=== PATIENT | male | born 1950 | race Caucasian/White ===

== ENCOUNTER 2017-03-04 10:22 | Day surgery (SDC) | payer OTHER, BC ==
[2017-02-28 11:33] VITALS: BMI 35.2
[2017-03-04] MEDS ORDERED: PROPOFOL 20 ML ONE (10:44)
[2017-03-04] MEDS ORDERED: LIDOCAINE HCL/PF 2% SDV 5ML VIAL ONE (10:44)
[2017-03-04 13:00] VITALS: BP 121/68; PULSE 78; TEMP 98
--- NOTE | 2017-03-05 16:08 | PATH ---
Surgical Pathology Report Patient Name: KAY ABURTO [facility]. Rec. #: [id number] /Age/Gender: 1950 (Age: 67) / M Account: [id number] Location: [facility]-ENDOSCOPY Taken: 03/04/2017 Received: 03/04/2017 Reported: 03/05/2017 Physicians: Jaxon Washington M.D. Specimen(s) Received BX ANTRUM Clinical History Preoperative diagnosis: Anemia Postoperative diagnosis: Prepyloric ulcer, gastric erosions Final Diagnosis ANTRUM, BIOPSY: MILD CHRONIC ACTIVE GASTRITIS. IMMUNOSTAIN IS NEGATIVE FOR H. PYLORI ORGANISMS. Electronically Signed Sherrie Esparza M.D. Gross Description Received in formalin, labeled "antrum" is a trevino, irregular portion of soft tissue measuring 0.3 cm. in greatest dimension. The specimen is submitted in toto in one cassette. /03/04/201703/04/2017
== END 2017-03-04 12:45 | disposition home or self-care (01) ==
LOC: FASU-ENDO 10:22
PROVIDERS: ATTEND Internal Medicine Gastroenterology
PROC: 0DB68ZX Excision of Stomach, Via Natural or Artificial Opening Endoscopic, Diagnostic (ICD-10-PCS; principal; 2017-03-04 11:33)
DX: D50.9 Iron deficiency anemia, unspecified (principal); K29.50 Unspecified chronic gastritis without bleeding; K44.9 Diaphragmatic hernia without obstruction or gangrene
CPT/HCPCS: 88305-TC; 88342-TC

== ENCOUNTER 2021-04-24 04:15 | Day surgery (SDC) | payer OTHER, BC ==
[2021-04-20 11:06] VITALS: BMI 32.5
[2021-04-24 08:44] LABS: BASO % 0.3 % (0-2.0); EOS % 1.5 % (0-4.5); HEMATOCRIT 39.1 % (35.4-49); HEMOGLOBIN 13.5 GM/dL (11.7-16.9); LYMPH % 22.2 % (8-40); MCH 28.3 pg (25.7-33.7); MCHC 34.6 g/dl (32.0-35.9); MEAN PLT VOLUME 7.9 fl (7.5-11.1); MONO % 7.8 % (3.8-10.2); NEUT % 68.2 % (42.8-82.8); PLATELET COUNT 265 10^3/uL (134-434); RBC 4.77 M/mm3 (4.00-5.60); WHITE BLOOD COUNT 6.6 K/mm3 (4.0-10.0)
[2021-04-24 08:46] LABS: INR 1.15 (0.83-1.09); PROTHROMBIN TIME (PATIENT) 13.2 SEC (9.7-13.0)
[2021-04-24 14:48] VITALS: TEMP 98
[2021-04-24 16:05] VITALS: BP 146/72; PULSE 82
[2021-04-24 16:22] LABS: CSF APPEARANCE CLEAR (CLEAR); CSF COLOR COLORLESS (COLORLESS); CSF WBC 0 mm3 (0-5)
[2021-04-28 17:40] LABS: BF GLUCOSE (CSF ONLY) 61 mg/dL (40-70)
== END 2021-04-24 14:10 | disposition home or self-care (01) ==
LOC: JRADIR 04:15
PROVIDERS: ATTEND Psychiatry & Neurology Psychiatry
PROC: 009U3ZX Drainage of Spinal Canal, Percutaneous Approach, Diagnostic (ICD-10-PCS; principal; 2021-04-24)
DX: G61.81 Chronic inflammatory demyelinating polyneuritis (principal)
CPT/HCPCS: 36415; 62272; 82784; 82945; 83916; 84157; 85025; 85610; 87070; 87102; 87116; 87205; 87206; 87210; 87252; 87899

== ENCOUNTER 2023-07-01 18:40 | Emergency (ER) | payer OTHER, BC ==
[2023-07-01 18:53] VITALS: TEMP 99.1; BMI 32.1
[2023-07-01] MEDS ORDERED: methylPREDNISolone NA SUCC 125 MG/2 ML VIAL ONE (19:17)
[2023-07-01] MEDS: methylPREDNISolone NA SUCC 125 MG/2 ML VIAL IVPB ONE (19:24)
[2023-07-01] MEDS: FAMOTIDINE 20 MG/50 ML IVPB 20 MG/50 ML MG IVPB ONE (20:02)
[2023-07-01] MEDS ORDERED: ACETAMINOPHEN INJECTION 100 ML IVPB ONE (20:04)
[2023-07-01] MEDS: ACETAMINOPHEN 1000 MG/100 ML BAG IVPB ONE (20:14)
[2023-07-01 20:15] VITALS: BP 136/79; PULSE 104; RESP 20
== END 2023-07-01 22:00 | disposition home or self-care (01) ==
LOC: JER 18:40
PROC: 3E033NZ Introduction of Analgesics, Hypnotics, Sedatives into Peripheral Vein, Percutaneous Approach (ICD-10-PCS; principal; 2023-07-01)
PROC: 3E033GC Introduction of Other Therapeutic Substance into Peripheral Vein, Percutaneous Approach (ICD-10-PCS; 2023-07-01)
DX: R21 Rash and other nonspecific skin eruption (principal); T78.2XXA Anaphylactic shock, unspecified, initial encounter; R22.0 Localized swelling, mass and lump, head
CPT/HCPCS: 99284-25; J0131